=== PATIENT | female | born 1945 | race Caucasian/White ===

== ENCOUNTER → 2016-04-23 | Outpatient (CLI) | payer OTHER ==
[~2016-04-23] MED LIST: CALC600T9 PO; CHOL2000 PO; EYE PROMISE PO; PRM625 PO; RXC5 PO; [UNRECOGNIZED DRUG - OTHER] PO
--- NOTE | 2016-04-27 13:49 | MAMMOGRAPHY REPORT ---
BILATERAL DIGITAL SCREENING MAMMOGRAM WITH CAD: 04/23/2016 CLINICAL HISTORY: Routine screening. Patient has no complaints. TECHNIQUE: Current study was also evaluated with a Computer Aided Detection (CAD) system. Bilatera l CC and MLO views were obtained. COMPARISON: Comparison is made to exams dated: 04/22/2015 mammogram and 10/05/2013 mammogram - [facility]. BREAST COMPOSITION: The tissue of both breasts is heterogeneously dense, which may obscure small ma sses. FINDINGS: There is a 4 mm mass seen within the left superior posterior breast on the MLO view only, not clearly evident in this region on the prior exams. Recommend spot compression tomosynthesis vi ews and possible breast ultrasound for further evaluation. This may potentially represent a cyst or intramammary lymph node. The remainder of both breasts are stable compared to prior exams, without suspicious masses, calcifi cations, or areas of architectural distortion noted. IMPRESSION: ACR BI-RADS CATEGORY 0: INCOMPLETE EVALUATION: NEED ADDITIONAL IMAGING EVALUATION Left breast mass, for which additional imaging evaluation is recommended. The patient will be montesinos d to schedule an appointment. Approximately 10% of breast cancers are not detected with mammography. A negative mammographic repor t should not delay biopsy if a clinically suggestive mass is present. Bianka Villanueva M.D. ah/:04/24/2016 16:07:19 Machine Tool Builder: Ml CARROLL)(M), [facility] letter sent: Addl Imaging 0 BI-RADS Code: ACR BI-RADS Category 0: Incomplete Evaluation: Need Additional Imaging Evaluation
== END | disposition home or self-care (01) ==
LOC: C.MAMM 08:47
PROVIDERS: ATTEND Obstetrics & Gynecology
DX: Z12.31 Encounter for screening mammogram for malignant neoplasm of breast (principal); N63 Unspecified lump in breast

== ENCOUNTER → 2016-05-04 | Outpatient (CLI) | payer OTHER ==
--- NOTE | 2016-05-04 16:08 | MAMMOGRAPHY REPORT ---
UNILATERAL LEFT DIGITAL DIAGNOSTIC MAMMOGRAM TOMOSYNTHESIS AND TARGETED LEFT ULTRASOUND: 05/04/2016 CLINICAL HISTORY: Call back from screening mammography for a newly visualized 4 mm mass in the super ior posterior left breast. TECHNIQUE: Spot compression left CC and MLO 2-D digital and tomosynthesis images and left full-field MLO 2-D digital and tomosynthesis images were obtained after placement of a skin BB marker. COMPARISON: Comparison is made to exams dated: 04/23/2016 mammogram, 04/22/2015 mammogram, and 10/06/19 14 mammogram - [facility]. BREAST COMPOSITION: There are scattered areas of fibroglandular density in the left breast. FINDINGS: The spot compression views of the left breast demonstrate a morphologically normal lymph n ode measuring 4 mm in the upper outer posterior breast on the foot to correlate with the newly visua lized mammographic mass. A second smaller 2 mm stable lymph node is also identified on those images . No other suspicious mass, focal area of architectural distortion or suspicious mass or calcificat ions are seen. Targeted ultrasound was performed in the left upper outer quadrant. In the 2:00 left breast, 8 cm f rom the nipple, a morphologically normal lymph node is identified with a thin cortex and central blo od flow as well as echogenic fatty hilum. This is thought to correlate with the mammographic mass. A skin BB was placed overlying the skin directly above this lymph node. A repeat left MLO view including tomosynthesis images was obtained. This additional view demonstrat es alignment of the BB marker with the lymph node seen on ultrasound, confirming benignity. No furt her workup is needed at this time. IMPRESSION: ACR BI-RADS CATEGORY 2: BENIGN, TARGETED ULTRASOUND ACR BI-RADS CATEGORY 2: BENIGN The newly visualized 4 mm mass the superior posterior left breast correlates with a benign intramamm gianluca lymph node. There is no mammographic or targeted sonographic evidence of malignancy. Return to annual mammogram screening schedule is recommended. The patient has been verbally notified of the r esults. Approximately 10% of breast cancers are not detected with mammography. A negative mammographic repor t should not delay biopsy if a clinically suggestive mass is present. Lizz Sterling M.D. ay/:05/04/2016 15:39:18 Superintendent General: Ami VELA(R)(M), [facility] letter sent: Normal 1/2 BI-RADS Code: ACR BI-RADS Category 2: Benign Ultrasound BI-RADS: ACR BI-RADS Category 2: Benign
== END | disposition home or self-care (01) ==
LOC: C.MAMM 14:20
PROVIDERS: ATTEND Obstetrics & Gynecology
DX: N63 Unspecified lump in breast (principal)

== ENCOUNTER → 2016-06-19 | Outpatient (CLI) | payer OTHER ==
--- NOTE | 2016-06-19 16:59 | DIAGNOSTIC IMAGING REPORT ---
ULTRASOUND VENOUS DOPP LOWER EXT UNILAT CLINICAL HISTORY: Right leg swelling COMPARISON STUDY: No previous studies for comparison. FINDINGS: Real-time and color flow Doppler imaging were performed. Flow was seen within the femoral, popliteal and calf veins with no intraluminal thrombus demonstrated. The saphenous vein is patent. IMPRESSION: No evidence of right lower extremity DVT. Electronically signed by: Matty Gil M.D. 06/19/2016 4:58 PM Dictated Date/Time: 06/19/2016 4:58 PM
== END | disposition home or self-care (01) ==
LOC: C.ULTR 16:03
PROVIDERS: ATTEND Physician Assistant Medical
DX: M79.89 Other specified soft tissue disorders (principal); M79.604 Pain in right leg

== ENCOUNTER → 2016-09-04 | Outpatient (CLI) | payer OTHER ==
[2016-09-04 16:33] LABS: URINE APPEARANCE CLEAR (CLEAR); URINE BILIRUBIN NEG (NEG); URINE COLOR YELLOW; URINE EPITHELIAL CELL AUTO >30 /lpf (0-5); URINE NITRITE POS (NEG); URINE PH 5.5 (4.5-7.5); URINE SPECIFIC GRAVITY 1.014 (1.000-1.030); UROBILINOGEN NEG (NEG)
[2016-09-04 16:40] LABS: MANUAL MICROSCOPIC REQUIRED? NO; REVIEW REQ? NO
== END | disposition home or self-care (01) ==
LOC: C.LABBFT 12:41
PROVIDERS: ATTEND Orthopaedic Surgery Orthopaedic Surgery of the Spine
DX: Z01.818 Encounter for other preprocedural examination (principal)

== ENCOUNTER 2016-10-07 05:47 | Inpatient (IN) | payer OTHER ==
[2016-09-04 08:27] VITALS: BMI 23.0
--- NOTE | 2016-09-04 09:16 | PAT Medication Instructions ---
Service Date Sep 04, 2016. Current Home Medication List Calcium Carbonate-Vitamin D (Calcium + D), 1 TAB PO HS Cholecalciferol (Vitamin D3), 1 CAP PO HS [Estriadol], 0.5 MG PO HS [Eye Promise], 1 TAB PO HS Medication Instructions For Your Scheduled Surgery - Check with surgeon for instructions: [Estriadol], 0.5 MG PO HS - Take the following medications as scheduled the night before surgery: Calcium Carbonate-Vitamin D (Calcium + D), 1 TAB PO HS Cholecalciferol (Vitamin D3), 1 CAP PO HS [Eye Promise], 1 TAB PO HS If you have any questions please call us at [phone] or [phone] or [phone]
--- NOTE | 2016-09-04 09:34 | DIAGNOSTIC IMAGING REPORT ---
CHEST PREADMISSION(PA/LAT) CLINICAL HISTORY: Preoperative chest COMPARISON STUDY: No previous studies for comparison. FINDINGS: The cardiac and mediastinal contours are normal. There is no evidence of focal pulmonary consolidation. There is no evidence of failure. No pleural effusions are visualized.[ IMPRESSION: No active disease in the chest. Electronically signed by: Matty Gil M.D. 09/04/2016 9:33 AM Dictated Date/Time: 09/04/2016 9:30 AM
[2016-09-04 10:00] LABS: BASO % 0.1 %; BASO ABS # 0.01 K/uL (0-0.2); COMPLETE YES; EOS % 0.2 %; IG% 0.3 %; LYMPH % 10.6 %; LYMPH ABS # 1.06 K/uL (1.2-3.4); MEAN CELL VOLUME 96.6 fL (80-100); MEAN CORPUSCULAR HEMOGLOBIN 32.1 pg (25-34); MEAN CORPUSCULAR HGB CONC 33.3 g/dl (32-36); MEAN PLATELET VOLUME 10.6 fL (7.4-10.4); MONO % 8.9 %; NEUT % 79.9 %; PLATELET COUNT 194 K/uL (130-400); RED BLOOD COUNT 4.14 M/uL (4.2-5.4)
[2016-09-04 11:03] LABS: CALCIUM 8.9 mg/dl (8.5-10.1); CREATININE 0.73 mg/dl (0.60-1.20); POTASSIUM 4.2 mmol/L (3.5-5.1)
[~2016-10-07] VITALS: Ht 167.6 cm; Wt 65.1 kg
[2016-10-07] VITALS (10 sets, daily range): BP systolic 93–128; BP diastolic 51–74; PULSE 67–82; TEMP 36.4–36.7; O2SAT 96–100; Ht 167.6 cm; Wt 65.1 kg
[~2016-10-07 05:47] MED LIST changes: -PRM625 PO; -RXC5 PO
[2016-10-07] MEDS ORDERED: LACTATED RINGER'S 1000ML 1,000 ML IV SCH (06:00)
[2016-10-07] MEDS ORDERED: CEFAZOLIN 1000MG/55 ML D5W IV SCH (06:00)
[2016-10-07] MEDS ORDERED: BUPIVACAINE/EPINEPHRINE 0.5% MPF 1:200,000 10 ML VIAL ONE (06:57)
[2016-10-07] MEDS ORDERED: SODIUM CHLORIDE 0.9% PF 50 ML VIAL ONE (06:57)
[2016-10-07] MEDS ORDERED: BACITRACIN 50000 UNIT VIAL ONE (06:58)
[2016-10-07] MEDS ORDERED: FENTANYL CITRATE INJ 50 MCG/1 ML 2 ML VIAL ONE ×3 (07:03→09:02)
[2016-10-07] MEDS ORDERED: MIDAZOLAM HCL 1 MG/ML 2ML VIAL ONE (07:03)
[2016-10-07] MEDS ORDERED: FENTANYL CITRATE INJ 50 MCG/1 ML 2 ML VIAL IV PRN (07:15)
[2016-10-07] MEDS ORDERED: ATROPINE SULFATE 0.1 MG/ML 5ML SYR IV PRN (07:15)
[2016-10-07] MEDS ORDERED: EpHEDrine SULFATE INJ 50 MG/ML AMP IV PRN (07:15)
[2016-10-07] MEDS ORDERED: ONDANSETRON INJ 2 MG/ML 2 ML VIAL IV PRN (07:15)
--- NOTE | 2016-10-07 07:36 | History & Physical Bridge Note ---
H&P Re-Evaluation Bridge Note: I have examined the patient, reviewed the History & Physical and in the interval since the performance of the History & Physical I have noted the following changes of clinical significance: No changes noted
--- NOTE | 2016-10-07 07:37 | History and Physical ---
History & Physical Date Oct 07, 2016. Chief Complaint Back and leg pain History of Present Illness The patient is a 71 year old female with complaints of chronic back and leg pain Additional History Hepatic Disease: No Endocrine Disorder: No Kidney Disease: No Hypertension: No Heart Disease: No Bleeding Tendencies: No Infectious Diseases: No Allergies Coded Allergies: Propoxyphene (Verified Allergy, Unknown, DISORIENTATION, 10/07/16) Risedronate (Verified Allergy, Unknown, HEARTBURN, 10/07/16) Home Medications Scheduled Calcium Carbonate-Vitamin D (Calcium + D), 1 TAB PO HS Cholecalciferol (Vitamin D3), 1 CAP PO HS [Estriadol], 0.5 MG PO HS [Eye Promise], 1 TAB PO HS Physical Examination Skin: warm/dry, no rash Eyes: normal inspection, EOMI, sclerae normal ENT: normal ENT inspection, pharynx normal Head: normocephalic, atraumatic Neck: supple, no adenopathy, trachea midline Respiratory/Chest: lungs clear, normal breath sounds, no respiratory distress Cardiovascular: regular rate, rhythm, no edema, no murmur Abdomen / GI: normal bowel sounds, non tender Back: normal inspection Extremities: normal inspection, normal range of motion Neurologic/Psych: no motor/sensory deficits, alert, normal reflexes, oriented x 3 Diagnosis Lumbar spinal stenosis Plan of Treatment Lumbar decompression L3 4 L4 5 fusion
[2016-10-07] MEDS ORDERED: HYDROmorphone INJ 2 MG/ML SYR/VIAL ONE ×2 (08:04→10:01)
[2016-10-07] MEDS ORDERED: LIDOCAINE HCL 2% 2 ML VIAL (20MG/ML) ONE (08:53)
[2016-10-07] MEDS ORDERED: PROPOFOL IV EMULSION 10 MG/ML 20 ML VIAL IV ONE (08:53)
[2016-10-07] MEDS ORDERED: DEXAMETHASONE SOD INJ 4 MG/ML VIAL ONE (08:53)
[2016-10-07] MEDS ORDERED: ROCURONIUM BROMIDE 10 MG/ML 5 ML VIAL ONE (08:53)
[2016-10-07] MEDS ORDERED: ONDANSETRON INJ 2 MG/ML 2 ML VIAL ONE ×2 (08:53→10:10)
[2016-10-07] MEDS ORDERED: FLOSEAL HEMOSTATIC MATRIX 10ML TOP ONE (09:46)
--- NOTE | 2016-10-07 10:03 | DIAGNOSTIC IMAGING REPORT ---
INTRAOPERATIVE LUMBAR SPINE 2 VIEWS CLINICAL HISTORY: L3-5 DECOMPRESSION/FUSION/INTERBODY COMPARISON STUDY: No previous studies for comparison. FINDINGS: 2 intraoperative fluoroscopic spot images are provided for interpretation. 20 seconds of fluoroscopic time was utilized. There are postsurgical changes of an L4 3-4 discectomy and interbody fusion. There is posterior spinal fusion with pedicle screws the L3, L4, and L5 levels with adjoining spinal rods. IMPRESSION: Intraoperative radiograph demonstrating postsurgical changes of a spinal decompression and fusion. Electronically signed by: Matty Gil M.D. 10/07/2016 10:02 AM Dictated Date/Time: 10/07/2016 10:00 AM
[2016-10-07] MEDS ORDERED: SODIUM CHLORIDE 0.9% 1000ML 1,000 ML IV SCH (10:07)
[2016-10-07] MEDS ORDERED: GLYCOPYRROLATE INJ 0.2 MG/ML VIAL ONE (10:10)
[2016-10-07] MEDS ORDERED: NEOSTIGMINE METHYLSULFATE 1 MG/ML 10ML VIAL ONE (10:10)
[2016-10-07] MEDS ORDERED: EpHEDrine SULFATE 50MG/5ML SYR ONE (10:10)
[2016-10-07] MEDS ORDERED: PHENYLEPHRINE 100MCG/ML 5ML SYR ONE (10:10)
--- NOTE | 2016-10-07 10:14 | [facility] Operative Report ---
Operative Report Operative Date Oct 07, 2016. Pre-Operative Diagnosis Lumbar Spinal Stenosis Post-Operative Diagnosis same as pre-operative Procedure(s) Performed #1 decompression medial facetectomies foraminotomies L2 3 L3 4 L4 5. #2 posterior spinal fusion L3 4 L4 5. #3 placement of posterior segmental instrumentation L3 4 L4 5. #4 interbody fusion L3 4. #5 placement peek cage 12 x 22 mm at L3 4. 6 placement of locally harvested autograft in the posterior lateral gutters. #7 placement infuse collagen sponge, mask graft in the posterior lateral gutters DBM in the interbody space. Surgeon Dr. Artem Jesus Estimated Blood Loss 250ml Findings Severe spinal stenosis with facet cysts Specimens none per surgeon Description of Procedure The patient was met with preoperative early case discussed all questions are dressed. After informed consent patient was taken back to the operative suite after undergoing intubation placed in a prone position on the Quirino table on top Home frame. All bony promises well-padded eyes inspected to ensure there is no external pressure on them. Lumbar spine was prepped and draped in the normal sterile fashion. Sharp dissection with the assistance of Bovie cautery was then performed onto an exposing the lamina and transverse processes of L3 L4 -L5 bilaterally. From a caudal to cephalad fashion complete laminectomy of 43 partial laminectomy of L2 was performed addressing severe lateral recess stenosis facet cysts on the right at both L3 4 for 5 levels. After this complete pedicle screws are placed in L3 L4-L5 bilaterally with assistance of fluoroscopy in the purposes alysha placed. Through a transforaminal approach on the right a complete discectomy of L3 4 was performed and plate curetted to subcortical bleeding bone and a 12 x 22 mm peek cage filled with DBM tapped in position. The rods were then compressed and locked and final position bilaterally. 15 round TAVIA drain inserted. Incision was then closed with 1 Vicryl in the fascia 2-0 Vicryl subcutaneous C 4 Monocryl for final skin closure Steri-Strip sterile dressing placed patient we can taken to PACU stable condition. I attest to the content of the Intraoperative Record and any orders documented therein. Any exceptions are noted below.
[2016-10-07] MEDS ORDERED: BISACODYL 10 MG SUPP PR PRN (10:15)
[2016-10-07] MEDS ORDERED: SOD PHOSPHATE/SOD BIPHOSPHATE ENEMA 132 ML BTL PR PRN (10:15)
[2016-10-07] MEDS ORDERED: hydrOXYzine HCL 25 MG TAB PO PRN (10:15)
[2016-10-07] MEDS ORDERED: PROMETHAZINE HCL INJ 12.5 MG in SODIUM CHLORIDE 0.9% 50ML 50 ML IV PRN (10:15)
[2016-10-07] MEDS ORDERED: FAMOTIDINE 20 MG TAB PO PRN (10:15)
[2016-10-07] MEDS ORDERED: NALOXONE HCL 0.4 MG/1 ML VIAL/CARP IV PRN ×2 (10:15)
[2016-10-07] MEDS ORDERED: LORAZEPAM 0.5 MG TAB PO PRN (10:15)
[2016-10-07] MEDS ORDERED: ALUMINUM/MAGNESIUM SUSP 30 ML UDC PO PRN (10:15)
[2016-10-07] MEDS ORDERED: MAGNESIUM HYDROXIDE SUSP 30 ML UDC PO PRN (10:15)
[2016-10-07] MEDS ORDERED: DO NOT ADMINISTER PNEUMOCOCCAL VACCINE PRN ×2 (10:15)
[2016-10-07] MEDS ORDERED: LORAZEPAM INJ 0.5 MG in SYRINGE 0.75 ML IV PRN (10:15)
[2016-10-07] MEDS ORDERED: ACETAMINOPHEN IV 100 ML IV PRN (10:15)
[2016-10-07] MEDS ORDERED: DO NOT ADMINISTER FLU VACCINE PRN ×3 (10:15)
[2016-10-07] MEDS: HYDROmorphone HCL 0.5MG/ML 50 ML CASSETTE IV PRN ×4 (10:42→23:09)
--- NOTE | 2016-10-07 11:03 | Anesthesiology Progress Note ---
Anesthesia Post Op Note Date & Time Oct 07, 2016 at 11:03 Vital Signs Pain Intensity: 0 Vital Signs Past 12 Hours Date Time Temp Pulse Resp B/P (MAP) Pulse Ox O2 Delivery O2 Flow Rate FiO2 10/07/16 10:55 36.3 73 12 123/58 100 Nasal Cannula 4 10/07/16 10:45 75 17 119/56 100 Nasal Cannula 4 10/07/16 10:35 81 12 118/60 99 Oxymask 10 10/07/16 10:25 77 13 119/57 98 Oxymask 10 10/07/16 10:17 36.5 76 14 107/51 97 Oxymask 10 10/07/16 06:28 36.7 81 20 128/67 100 Room Air Notes Mental Status: alert / awake / arousable, participated in evaluation Pt Amnestic to Procedure: Yes Nausea / Vomiting: adequately controlled Pain: adequately controlled Airway Patency, RR, SpO2: stable & adequate BP & HR: stable & adequate Hydration State: stable & adequate Anesthetic Complications: no major complications apparent
[2016-10-07] MEDS ORDERED: ESMOLOL HCL 10 MG/ML 10 ML VIAL ONE (11:23)
[2016-10-07] MEDS ORDERED: KETOROLAC TROMETHAMINE 30 MG/ML VIAL ONE (11:23)
[2016-10-07] MEDS: SODIUM CHLORIDE 0.9% 1000ML 1,000 ML IV SCH ×2 (12:06→18:28)
[2016-10-07] MEDS ORDERED: RXC5 PO (12:18)
--- NOTE | 2016-10-07 12:19 | Discharge Instructions ---
Discharge Instructions Date of Service Oct 07, 2016. Admission Reason for Admission: Lumbar Spinal Stenosis Discharge Discharge Diagnosis / Problem: stenosis Discharge Goals Goal(s): Improve function Activity Recommendations Activity Limitations: per Instructions/Follow-up section . Instructions / Follow-Up Instructions / Follow-Up ACTIVITY RECOMMENDATIONS: SELF CARE INSTRUCTIONS AFTER THORACIC/LUMBAR FUSIONS 1. You may walk to your tolerance. It is good exercise for your legs and back. Expect some back and intermittent leg aches and pains. 2. You may perform "counter-top" level activities (make a sandwich, efraín with a project, etc.). 3. No bending or lifting of more than 10 pounds or back twisting of any nature (roll like a log when turning in bed). 4. You may ride in a car for 20-30 minutes at a time. No driving until after your first visit with your doctor. 5. Frequent changes of position and restricting sitting to 30 minutes at a time will help limit the amount of back spasms and stiffness you may experience. 6. You may discontinue the use of ambulatory aids (cane, crutches, etc.) once your strength and confidence allow. 7. You may roll line operator the shower and let water strike your incision when you arrive home at least once daily. Do not take a tub bath, sit in a hot tub or go into a swimming pool until after your first recheck in the office. SPECIAL CARE INSTRUCTIONS: VERY IMPORTANT TO READ AND REVIEW A. Your surgical incision has been closed with a cosmetic suture under the skin that will dissolve in about 6 weeks. In 14 days, you can use a pair of clean scissors and cut the suture that is left outside of the skin at the ends of your incision. 1. The small skin tapes can be removed 7 days after surgery if they have not fallen off by that point. 2. You may keep the wound open to air as much as possible to promote healing after post-op day number 5 unless told otherwise by your doctor. 3. If you think the wound looks like it is becoming infected (redness or worsening drainage) and/or you are experiencing fever, chill or worsening back pain and muscle spasms, contact the office so that we may evaluate you as soon as possible. B. Complications are uncommon, but please contact us if you have any signs or symptoms of: 1. wound infection (fever higher than 102.5 degrees F, redness, separation of wound, drainage, or increasing pain from the incision) 2. blood clots in legs (pain, swelling, redness and warmth in legs) 3. urinary tract infection (fever higher than 102.5 degrees F, burning upon urination or increased frequency of urination) 4. nerve problems (inability to walk on your toes or heels, numbness, loss of bowel or bladder control) 5. any other symptoms that concern you C. Please call the office at if you have any concerns or questions about your operation or recovery. D. No smoking! Smoking drastically decreases the chance of a solid fusion. E. Do not take any anti-inflammatory medications (Indocin, Advil, Motrin, Aspirin, Naprosyn, etc.) as these may inhibit the chance of a solid fusion. Tylenol is okay to take for pain. MANAGING PAIN AFTER SPINAL SURGERY 1. Narcotic medication is intended for short-term use and will be provided for surgical pain. Surgical pain usually lasts for a period of 4-6 weeks. Narcotic medication includes Percocet, Vicodin, Darvocet, Tylenol #3 or Lortab. 2. Longer-term pain is more appropriately treated with non-narcotic medication such as Tylenol ES. 3. Muscle spasm is not appropriately treated with narcotics. Muscle relaxers such as Soma, Flexeril or Skelaxin can be used along with Tylenol ES. 4. Remember that we all live with some "aches and pains". This is not unusual or uncommon after an injury or as we get older. a. Back pain is expected and may include muscle spasms for 4 to 6 weeks after surgery. The pain should gradually improve. If the pain worsens for no apparent reason, please contact the office. b. Intermittent leg pain may also be experienced and should not be concerned about unless it worsens for no apparent reason. If so, please contact the office. 5. We will provide appropriate medication within the normal guidelines of their prescribed use. We will also be very cautious and aware of potential abuse and extended duration of patients' medication needs. a. Pain medications are for your comfort and to assist with sleep and rest so that the tissue can heal. They are not provided in order to return to normal activity and should not be used through the day. To do so or worsening pain at night can result from ongoing tissue damage and development of tolerance to the prescribed medicine. 6. Please allow 2-3 days to process refills. Prescriptions will not be mailed but must be picked up at the office. FOLLOW UP VISIT: Keep your scheduled follow-up appointment. Any questions, please call the office at . Current Hospital Diet Patient's current hospital diet: Regular Diet Discharge Diet Recommended Diet: Regular Diet Procedures Procedures Performed: #1 decompression medial facetectomies foraminotomies L2 3 L3 4 L4 5. #2 posterior spinal fusion L3 4 L4 5. #3 placement of posterior segmental instrumentation L3 4 L4 5. #4 interbody fusion L3 4. #5 placement peek cage 12 x 22 mm at L3 4. 6 placement of locally harvested autograft in the posterior lateral gutters. #7 placement infuse collagen sponge, mask graft in the posterior lateral gutters DBM in the interbody space. Pending Studies Studies pending at discharge: no Medical Emergencies . Who to Call and When: Medical Emergencies: If at any time you feel your situation is an emergency, please call 911 immediately. . Non-Emergent Contact Non-Emergency issues call your: Primary Care Provider . "Provider Documentation" section prepared by Artem Jesus. . VTE Core Measure Inpt VTE Proph given/why not?: Brady Boyle, [facility]
[2016-10-07] MEDS: DEXAMETHASONE INJ 6 MG in SYRINGE 0 ML IV SCH ×2 (14:39→21:52)
[2016-10-07] MEDS: CEFAZOLIN IV 1,000 MG in DEXTROSE 5% 50ML 50 ML IV SCH ×2 (15:36→23:24)
[2016-10-07] MEDS: ONDANSETRON INJ 2 MG/ML 2 ML VIAL IV PRN (18:13)
[2016-10-07] MEDS: METOCLOPRAMIDE HCL INJ 5 MG/ML 2 ML VIAL IV PRN (19:10)
[2016-10-07] MEDS: DOCUSATE SODIUM/SENNA 50/8.6MG TAB PO SCH (20:26)
[2016-10-08] MEDS: SODIUM CHLORIDE 0.9% 1000ML 1,000 ML IV SCH ×2 (01:13→08:27)
[2016-10-08 03:40] VITALS: BP 93/54; PULSE 73; TEMP 36.4; O2SAT 96
[2016-10-08] MEDS: DEXAMETHASONE INJ 6 MG in SYRINGE 0 ML IV SCH (05:29)
[2016-10-08] MEDS ORDERED: HYDROmorphone INJ 0.5 MG/0.5 ML SYR IV PRN (06:00)
[2016-10-08] MEDS ORDERED: DC PCA ONE (06:00)
[2016-10-08] MEDS ORDERED: OXYCODONE HCL IR 5 MG TAB (IMMEDIATE RELEASE) PO PRN (06:00)
[2016-10-08 07:13] LABS: BASO % 0.1 %; BASO ABS # 0.01 K/uL (0-0.2); COMPLETE YES; HEMATOCRIT 30.2 % (37-47); IG% 0.3 %; LYMPH ABS # 0.82 K/uL (1.2-3.4); MEAN CELL VOLUME 95.9 fL (80-100); MEAN CORPUSCULAR HEMOGLOBIN 32.4 pg (25-34); MEAN CORPUSCULAR HGB CONC 33.8 g/dl (32-36); MEAN PLATELET VOLUME 10.5 fL (7.4-10.4); MONO % 3.2 %; NEUT % 91.4 %; PLATELET COUNT 161 K/uL (130-400); RED BLOOD COUNT 3.15 M/uL (4.2-5.4); WHITE BLOOD COUNT 16.35 K/uL (4.8-10.8)
[2016-10-08 07:48] VITALS: BP 102/60; PULSE 72; TEMP 36.4; O2SAT 95
[2016-10-08 07:50] VITALS: O2SAT 95
[2016-10-08 07:50] LABS: BUN/CREATININE RATIO 13.8 (10-20); CALCIUM 8.2 mg/dl (8.5-10.1); CREATININE 0.55 mg/dl (0.60-1.20); POTASSIUM 4.2 mmol/L (3.5-5.1)
--- NOTE | 2016-10-08 08:22 | Progress Note ---
Progress Note Date of Service Oct 08, 2016. Progress Note Pain is well-controlled. She has denies any leg pain. Patient has been up in amatory without difficulty. On exam she is good strength testing appears quite comfortable. Assessment status post lumbar depression fusion replant this time we'll initiate physical therapy today advance her bowel regimen consider home Wednesday or Wednesday.
[2016-10-08] MEDS: ONDANSETRON INJ 2 MG/ML 2 ML VIAL IV PRN (08:27)
--- NOTE | 2016-10-08 10:22 | Anesthesiology Progress Note ---
Anesthesia Post Op Note Date & Time Oct 08, 2016 at 10:22 Vital Signs Pain Intensity: 3.0 Vital Signs Past 12 Hours Date Time Temp Pulse Resp B/P (MAP) Pulse Ox O2 Delivery O2 Flow Rate FiO2 10/08/16 08:25 Room Air 10/08/16 07:50 95 Room Air 10/08/16 07:48 36.4 72 20 102/60 (74) 95 Room Air 10/08/16 03:40 36.4 73 16 93/54 (67) 96 Room Air 10/07/16 23:20 36.4 67 16 94/52 (66) 96 Room Air 10/07/16 23:15 Room Air Notes Mental Status: alert / awake / arousable, participated in evaluation Pt Amnestic to Procedure: Yes Nausea / Vomiting: adequately controlled Pain: adequately controlled Airway Patency, RR, SpO2: stable & adequate BP & HR: stable & adequate Hydration State: stable & adequate Anesthetic Complications: no major complications apparent
[2016-10-08] MEDS: METOCLOPRAMIDE HCL INJ 5 MG/ML 2 ML VIAL IV PRN (11:06)
[2016-10-08] MEDS: ACETAMINOPHEN 500 MG TAB PO PRN ×2 (11:07→20:09)
[2016-10-08 11:23] VITALS: BP 98/68; PULSE 67; TEMP 36.4; O2SAT 96
[2016-10-08 15:00] VITALS: BP 96/55; PULSE 70; TEMP 36.3; O2SAT 98
[2016-10-08] MEDS ORDERED: NURSING VERBAL MED ORDER ONE (15:00)
[2016-10-08] MEDS: DOCUSATE SODIUM/SENNA 50/8.6MG TAB PO SCH (21:02)
[2016-10-08 23:35] VITALS: BP 103/60; PULSE 83; TEMP 36.4; O2SAT 96
[2016-10-09] MEDS: ACETAMINOPHEN 500 MG TAB PO PRN (04:34)
[2016-10-09] MEDS: POLYETHYLENE (MIRALAX) 17 GM PACK PO SCH ×3 (05:52→17:39)
[2016-10-09 07:01] VITALS: BP 97/57; PULSE 71; TEMP 36.7; O2SAT 95
[2016-10-09] MEDS: KETOROLAC TROMETHAMINE 15 MG/ML VIAL IV PRN ×2 (08:01→14:01)
--- NOTE | 2016-10-09 13:29 | Discharge Summary ---
Orthopedic Discharge Summary Admission Date/Reason Oct 07, 2016 at 07:30 Lumbar Spinal Stenosis. Discharge Date/Disposition Oct 09, 2016 Home Diagnosis Principal Diagnosis: Lumbar spinal stenosis Admission Physical Exam As per Admitting History & Physical. Hospital Course Patient underwent lumbar decompression fusion tolerated this well as taken to the orthopedic 4 postop we. Postoperative day #1 she was up and amatory progressed nicely through postop day #2. TAVIA drain decreased appropriate. Surgically she was discharged home. Discharge orders and instructions found on the chart for further review. Discharge Instructions Please refer to the electronic Patient Visit Report (Discharge Instructions) for additional information.
[2016-10-09 14:27] VITALS: BP 97/57; PULSE 71; TEMP 36.7; O2SAT 95
[2016-10-09 15:10] VITALS: BP 112/69; PULSE 69; TEMP 36.6; O2SAT 94
== END 2016-10-09 20:33 | disposition home or self-care (01) | DRG 460 ==
LOC: C.ACU 05:47 → C.MSN 07:30 → ENRESERV 10:52
PROVIDERS: ADMIT Orthopaedic Surgery Orthopaedic Surgery of the Spine; ATTEND Orthopaedic Surgery Orthopaedic Surgery of the Spine
PROC: 0SG0071 Fusion of Lumbar Vertebral Joint with Autologous Tissue Substitute, Posterior Approach, Posterior Column, Open Approach (ICD-10-PCS; principal; 2016-10-07 07:45)
PROC: 0ST20ZZ Resection of Lumbar Vertebral Disc, Open Approach (ICD-10-PCS; principal; 2016-10-07 07:45)
PROC: 0SG00A1 (ICD-10-PCS; principal; 2016-10-07 07:45)
DX: M48.06 Spinal stenosis, lumbar region (principal); Z79.899 Other long term (current) drug therapy

== ENCOUNTER → 2016-11-26 | Outpatient (CLI) | payer OTHER ==
[~2016-11-26] MED LIST changes: +RXC5 PO
== END | disposition home or self-care (01) ==
LOC: C.LABBFT 09:37
PROVIDERS: ATTEND Internal Medicine
DX: N39.0 Urinary tract infection, site not specified (principal)

== ENCOUNTER → 2017-01-28 | Outpatient (CLI) | payer OTHER ==
[2017-01-28 17:34] LABS: HEMATOCRIT 41.9 % (37-47); MEAN CELL VOLUME 97.9 fL (80-100); MEAN CORPUSCULAR HEMOGLOBIN 31.8 pg (25-34); MEAN CORPUSCULAR HGB CONC 32.5 g/dl (32-36); MEAN PLATELET VOLUME 11.3 fL (7.4-10.4); PLATELET COUNT 216 K/uL (130-400); RED BLOOD COUNT 4.28 M/uL (4.2-5.4); WHITE BLOOD COUNT 6.18 K/uL (4.8-10.8)
[2017-01-28 17:40] LABS: ALT/SGPT 19 U/L (12-78); BLOOD UREA NITROGEN 9 mg/dl (7-18); BUN/CREATININE RATIO 11.5 (10-20); CARBON DIOXIDE 28 mmol/L (21-32); CHLORIDE 104 mmol/L (98-107); CHOLESTEROL 228 mg/dl (0-200); GLUCOSE 86 mg/dl (70-99); POTASSIUM 4.1 mmol/L (3.5-5.1); SODIUM 138 mmol/L (136-145); TRIGLYCERIDES 86 mg/dl (0-150); VERY LOW DENSITY LIPOPROT CALC 17 mg/dl
[2017-01-28 17:50] LABS: ALB/GLOB RATIO 1.1 (0.9-2); ALKALINE PHOSPHATASE 85 U/L (45-117); AST/SGOT 19 U/L (15-37); CHOLESTEROL/HDL RATIO 2.9; HDL CHOLESTEROL 78 mg/dl; LDL CHOLESTEROL CALCULATED 133 mg/dl
== END | disposition home or self-care (01) ==
LOC: C.LABBFT 12:05
PROVIDERS: ATTEND Internal Medicine
DX: E78.5 Hyperlipidemia, unspecified (principal); M85.80 Other specified disorders of bone density and structure, unspecified site

== ENCOUNTER → 2017-04-26 | Outpatient (CLI) | payer OTHER ==
--- NOTE | 2017-04-27 15:16 | MAMMOGRAPHY REPORT ---
BILATERAL DIGITAL SCREENING MAMMOGRAM TOMOSYNTHESIS WITH CAD: 04/26/2017 CLINICAL HISTORY: Routine screening. Patient has no complaints. TECHNIQUE: Breast tomosynthesis in addition to standard 2D mammography was performed. Current study was also evaluated with a Computer Aided Detection (CAD) system. COMPARISON: Comparison is made to exams dated: 05/04/2016 mammogram, 04/23/2016 mammogram, 04/22/2015 ma mmogram, and 10/05/2013 mammogram - [facility]. BREAST COMPOSITION: There are scattered areas of fibroglandular density in both breasts. FINDINGS: There are minimal vascular calcifications in the breasts, and stable benign lymph nodes pro ject over the left pectoralis muscle on the MLO view. No suspicious mass, architectural distortion o r cluster of suspicious microcalcifications is seen. IMPRESSION: ACR BI-RADS CATEGORY 1: NEGATIVE There is no mammographic evidence of malignancy. A 1 year screening mammogram is recommended. The pa tient will receive written notification of the results. Approximately 10% of breast cancers are not detected with mammography. A negative mammographic report should not delay biopsy if a clinically suggestive mass is present. Lizz Sterling M.D. ay/:04/26/2017 16:06:23 Camp Manager: Alesha VELA(Leisa)(Nati)(BD), [facility] letter sent: Normal 1/2 BI-RADS Code: ACR BI-RADS Category 1: Negative
== END | disposition home or self-care (01) ==
LOC: C.MAMM 08:40
PROVIDERS: ATTEND Obstetrics & Gynecology
DX: Z12.31 Encounter for screening mammogram for malignant neoplasm of breast (principal)